=== PATIENT | female | born 1965 | race Two or more races ===

== ENCOUNTER → 2024-06-05 | Outpatient (CLI) | payer MEDICAID, SELFPAY ==
--- NOTE | 2024-06-05 09:37 | XR_ITS ---
Examination: Lumbar spine, 5 views Technique: Lumbar spine AP, lateral, coned lateral lower lumbar spine, bilateral obliques 5 views Exam date and time: June 05, 2024 0951 hours INDICATIONS: Back pain months FINDINGS: Lumbar levoscoliosis 15 degrees Moderate osteopenia Mild to moderate diffuse facet arthropathy No lumbar fracture Diffuse lumbar disc narrowing, moderate L3-L4 No spondylolisthesis IMPRESSION: Diffuse lumbar degenerative disc disease, moderate L3-L4
== END | disposition home or self-care (01) ==
PROVIDERS: PCP Physician Assistant; Referring Provider Physician Assistant; Visit Provider Physician Assistant
DX: M51.369 Other intervertebral disc degeneration, lumbar region without mention of lumbar back pain or lower extremity pain (principal)
CPT/HCPCS: 72110

== ENCOUNTER → 2024-07-18 | Outpatient (CLI) | payer MEDICAID, SELFPAY ==
--- NOTE | 2024-07-18 09:30 | XR_ITS ---
Examination: Breast ultrasound, unilateral, left complete Date and time of exam: July 18, 2019 0511 hours INDICATIONS: Mammogram May 05, 2024 4 mm focus architectural distortion 12:00 position left breast anterior depth Technique: Real-time wick scale ultrasonographic imaging performed left breast including all 4 quadrants as well as nipple retroareolar and axillary region. Findings: No cystic or solid mass IMPRESSION: BI-RADS Category 1: Negative study
--- NOTE | 2024-07-18 10:00 | XR_ITS ---
Examination: Diagnostic digital mammography, unilateral, left Computer aided detection 3-D breast Tomosynthesis, unilateral Date and time of exam: July 18, 2024 1027 hrs. Indications: Mammogram May 05, 2024 4 mm focus architectural distortion 12:00 position left breast Technique: Nonmagnified MLO, CC views of the left breast have been obtained, reconstructed from 3-D Tomosynthesis images. R2 computer aided detection program utilized for evaluation of suspicious masses and/or abnormal calcifications. 3-D Tomosynthesis images obtained. Findings: Scattered areas of fibroglandular density. Small focus of possible architectural distortion remains 12:00 position left breast Impression: BI-RADS category 3: Probably benign findings One additional 6 month left mammogram follow-up is needed to document no definite architectural distortion 12:00 position left breast
== END | disposition home or self-care (01) ==
PROVIDERS: PCP Physician Assistant; Referring Provider Physician Assistant; Visit Provider Physician Assistant
DX: R92.332 Mammographic heterogeneous density, left breast (principal); R92.8 Other abnormal and inconclusive findings on diagnostic imaging of breast
CPT/HCPCS: 76641; 77061; 77065; G0279

== ENCOUNTER 2024-08-02 09:54 | Outpatient (RCR) | payer MEDICAID, SELFPAY ==
--- NOTE | 2024-08-03 13:49 | PT.OIERPT ---
PT OP Initial Eval Patient Information Outpatient Physical Therapy Treatment Date: 08/02/24 Visit Reasons: LOW BACK PAIN Medical Diagnosis: Back Pain Treatment Dx #1: Back Pain Treatment Dx #2: Scoliosis Start of Care: 08/02/24 Smoking Status Smoking Status: Never smoker Initial Assessment Subjective: Pt is a 59 y/o female reports of chronic back pain with intermittent pain down the leg. Pt's most recent xray showed DDD L3-L4 and L5-S1 with 15 deg of scoliosis. No MRI has been done thus far. Pt has limitation with sitting, standing, walking, chores, work duties, and performing recreational activities. Objective: L/S AROM: all motions are WFL except left sidebending and and right rotation Hip PROM: all motions are WFL except IR Hip MMTs: grossly 3+/5 Posture Analysis: right truck sidebend, left shoulder elevation Muscle Length: Hs tightness R>L Special Test: WHITNEY's Assessment: Pt demonstrate back pain with mobility deficits leading to difficulty with ADLs. Pt will attempt physical therapy if pain persist Pt will be refer back to provider for further consultation. Short Term and Mobile Sales Consultant Goals 1) Increase spinal AROM WNL in 6 wks to be able to perform chores 2) Decrease back pain to 2/10 in 6 wks to be able to sit and stand more than 30 mins 3) Increase core strength WFL in 6 wks to be able to perform recreational activities 4) increase hip MMTs grossly to 4-/5 in 6 wks to be able to walk more than 30 mins 5) Indep with HEP Treatment Plan 1) Manual Therapy 2) Therapeutic Activities 3) Therapeutic Exercises 4) Modalities (ice, heat) Frequency and Duration: 2 x wk for 6 wks Certification Dates: 08/02/24 to 10/31/24 Procedure Charges OP PT Eval Mod Complex 30 minutes: Yes
== END 2024-08-04 23:59 | disposition home or self-care (01) ==
LOC: CPTX 09:54
PROVIDERS: PCP Physician Assistant; Referring Provider Physician Assistant; Visit Provider Physician Assistant
DX: M51.362 Other intervertebral disc degeneration, lumbar region with discogenic back pain and lower extremity pain (principal); M41.9 Scoliosis, unspecified; G89.29 Other chronic pain
CPT/HCPCS: 97162

== ENCOUNTER 2024-08-22 08:30 | Outpatient (RCR) | payer MEDICAID, SELFPAY ==
--- NOTE | 2024-08-07 13:16 | PT.ODAYNRPT ---
PT Outpatient Daily Note OP Daily Note Outpatient Physical Therapy Treatment Date: 08/07/24 Visit Reasons: Low back pain Subjective: Pt's back pain is about the same. No change in overall symptoms. Objective: Please see flow chart for list of ther ex performed Assessment: tolerate exercises with minimal pain Plan: Continue with PT Length of Time (minutes) of Treatment: 30 Minutes Procedure Charges Therapeutic Exercise 30 minutes: Yes
--- NOTE | 2024-08-09 09:28 | PT.ODAYNRPT ---
PT Outpatient Daily Note OP Daily Note Outpatient Physical Therapy Treatment Date: 08/09/24 Visit Reasons: Low back pain Subjective: Pt c/o low back LBP and pain on R glute. Objective: Please see flow sheet for ther ex list. Assessment: Poor tolerance with light activities due to pain response. Plan: Continue with POC. Length of Time (minutes) of Treatment: 30 Minutes Procedure Charges Therapeutic Exercise 30 minutes: Yes
--- NOTE | 2024-08-15 10:20 | PT.ODAYNRPT ---
PT Outpatient Daily Note OP Daily Note Outpatient Physical Therapy Treatment Date: 08/15/24 Visit Reasons: Low back pain Subjective: Pt reports low back pain continues to be present. Objective: Please see flow sheet for ther ex list. Assessment: Performed STM to l/s, pt TTP around L5 and sacral region. Pt suffers from vertigo, once getting up from seated pt having episode of dizziness, pt had to sit EOB a few minutes for dizziness to subside. Plan: Continue with POC. Length of Time (minutes) of Treatment: 30 Minutes Procedure Charges Therapeutic Exercise 30 minutes: Yes
--- NOTE | 2024-08-17 10:17 | PT.ODAYNRPT ---
PT Outpatient Daily Note OP Daily Note Outpatient Physical Therapy Treatment Date: 08/17/24 Visit Reasons: Low back pain Subjective: Pt's back feels okay. Minimal changes in pain noted Objective: Please see flow chart for list of ther ex perfromed Assessment: tolerate exercises with minimal pain Plan: Continue with PT Length of Time (minutes) of Treatment: 30 Minutes Procedure Charges Therapeutic Exercise 30 minutes: Yes
--- NOTE | 2024-08-22 11:24 | PT.ODS1RPT ---
PT OP Progress/Discharge Note Date of Service: 08/22/24 Progress Note/DC Note Progress Note/Discharge Note: DC Note Patient Information Visit Reasons: Low back pain Medical Diagnosis: Back Pain Treatment Dx #1: Back Pain Service Discharge Date: 08/22/24 Status Subjective: Pt's back and legs pain is about the same. Due to pain Pt still has limitation with chores, self care, cooking, cleaning, and performing recreational activities. Objective: L/S AROM: all motions are WFL with end range pain Hip PROM: all motions are WFL except IR bilaterally Hip MMTs: grossly 4-/5 Assessment: Pt demonstrate functional L/S mobility, however, continues to have pain leading to difficulty with ADLs. Recommend L/S MRI to help rule in/out nature of pain. Pt was instructed on HEP last session and educated to continue exercises to maintain overall mobility. Pt performed all exercises safely, thank you for your referrals. Plan: D/C home with HEP and follow up with MD DAVIS Recommend L/S MRI Procedure Charges Therapeutic Exercise 30 minutes: Yes
== END 2024-09-01 23:59 | disposition home or self-care (01) ==
LOC: CPTX 08:30
PROVIDERS: PCP Physician Assistant; Referring Provider Physician Assistant; Visit Provider Physician Assistant
DX: M51.362 Other intervertebral disc degeneration, lumbar region with discogenic back pain and lower extremity pain (principal); M41.9 Scoliosis, unspecified; G89.29 Other chronic pain
CPT/HCPCS: 97110

== ENCOUNTER → 2024-09-18 | Outpatient (CLI) | payer MEDICAID, SELFPAY ==
--- NOTE | 2024-09-18 14:32 | XR_ITS ---
Examination: Foot, right, 3 views Technique: AP, oblique, lateral views foot, 3 views Date and time of exam: September 18, 2024 1549 hours Comparison December 30, 2021 INDICATIONS: Right toe pain 5 months. FINDINGS: Prominent osteopenia Moderate osteoarthritis first metatarsophalangeal joint No fracture. No cortical bone destruction Mild osteoarthritis second and third metatarsophalangeal joints Prominent spur formation dorsal surface of the talus and the navicular 6 mm plantar bony calcaneal spur IMPRESSION: Osteoarthritis as above
== END | disposition home or self-care (01) ==
PROVIDERS: PCP Physician Assistant; Referring Provider Physician Assistant; Visit Provider Physician Assistant
DX: M19.071 Primary osteoarthritis, right ankle and foot (principal)
CPT/HCPCS: 73630

== ENCOUNTER → 2024-10-06 | Outpatient (CLI) | payer MEDICAID, SELFPAY ==
--- NOTE | 2024-10-06 14:00 | XR_ITS ---
Examination: MRI lumbar spine without contrast Date and time of exam: October 06, 2024 1449 hours Comparison July 15, 2019 INDICATIONS: Lower back pain 3 years radiating down both legs Technique: Multiple MRI axial and sagittal sections lumbar spine. Sagittal T2-weighted images, TR 3500, TE 118 T1 weighted transverse sections, TR 688 T8.5, T2-weighted sagittal sections T1 weighted sagittal sections TR 621, TE 30 T2 axial sections, TR 4, 190, TE 84. Findings: Adequate alignment lumbar vertebral bodies on the lateral view No lumbar fracture Moderate disc narrowing L3-L4 Diffuse lumbar disc desiccation No spondylolisthesis L5-S1 2 mm right paracentral disc bulge L4-L5 3 mm central lumbar disc bulge L3-L4 2 mm central lumbar disc bulge L2-L3 no disc protrusion L1-L2 no disc protrusion IMPRESSION: L5-S1 L3-L4 2 mm central lumbar disc bulges L4-L5 3 mm central lumbar disc bulge
== END | disposition home or self-care (01) ==
PROVIDERS: PCP Physician Assistant; Referring Provider Physician Assistant; Visit Provider Physician Assistant
DX: M51.360 Other intervertebral disc degeneration, lumbar region with discogenic back pain only (principal); M51.370 Other intervertebral disc degeneration, lumbosacral region with discogenic back pain only
CPT/HCPCS: 72148

== ENCOUNTER 2024-12-21 15:43 | Observation (INO) | payer MEDICAID, SELFPAY ==
[2024-12-21 16:12] VITALS: BP 159/83; PULSE 64; RESP 18; TEMP 36.6; O2SAT 94; BMI 28.1
--- NOTE | 2024-12-21 16:49 | XR_ITS ---
Examination: CT brain head without contrast. 2-D sagittal coronal reconstructions Date and time of exam:December 21, 2024 at 1653 hours INDICATIONS: Stroke alert, onset slurred speech focal neurologic deficit body weakness today CTDI: vol (mGy):45.5 DLP: (mGycm):921 Technique: Multiple CT axial sections of the brain have been obtained, 5 mm slice thickness. Contrast has not been administered. 2-D sagittal, coronal reconstructions have been obtained Low dose protocols were performed. One or more of the following dose reduction techniques were used; automated exposure control, adjustment of the mA and/or KV according to patient size, use of iterative reconstruction technique. Findings: No significant ventricular enlargement. Intra-axial or extra-axial hemorrhage density is not seen. No mass effect or midline shift Basal cisterns are not remarkable. Fourth ventricle is midline. Cranial vault intact. Impression: Negative for acute hemorrhage, mass effect or midline shift
--- NOTE | 2024-12-21 16:49 | EKG_ITS ---
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
--- NOTE | 2024-12-21 16:49 | XR_ITS ---
Examination: CTA carotids with intravenous contrast CTA brain, head with intravenous contrast. 2-D sagittal, coronal reconstructions. 3-D reconstructions. Exam date and time: December 21, 2024 1701 hours INDICATIONS: Stroke alert, onset slurred speech diffuse body weakness beginning 8 hours ago CTDI: vol (mGy) 39.6 DLP: (mGycm) 516 Technique: Multiple CTA axial brain, head carotid images post intravenous contrast injection 75 cc, Isovue-[id number]. 2-D sagittal, coronal reconstructions. 3-D reconstructions, 3-D post processing including vascular maximum intensity projection images. Low dose protocols were performed. One or more of the following dose reduction techniques were used; automated exposure control, adjustment of the mA and/or KV according to patient size, use of iterative reconstruction technique. Findings: No significant common carotid carotid bifurcation or internal carotid artery stenoses Dominant right vertebral artery with no critical vertebral artery stenoses Intracranial vertebral arteries artery posterior cerebral branches fill with no large vessel occlusions Juxtasellar supracondylar portions internal carotid arteries fill M1 segments middle cerebral arteries middle cerebral artery trifurcation vessels and anterior cerebral arteries demonstrate no large vessel occlusions IMPRESSION: No significant neck arterial stenoses No cerebral large vessel arterial occlusions, thrombus,. Brain MRI MRA without contrast follow-up would best assess for demyelinating disease, acute ischemic change, as clinically warranted
--- NOTE | 2024-12-21 16:49 | PD.EDRME ---
Rapid Medical Screening Exam RME Arrival date/time: 12/21/24 15:43 Chief Complaint: Nausea/Vomiting/Diarrhea Time Seen by Provider: 12/21/24 16:18 Vital signs: Vital Signs Temperature 97.9 F 12/21/24 16:12 Pulse Rate 64 12/21/24 16:12 Respiratory Rate 18 12/21/24 16:12 Blood Pressure 159/83 H 12/21/24 16:12 Pulse Oximetry (%) 94 L 12/21/24 16:12 Oxygen Delivery Method Room Air 12/21/24 16:12 Vital signs reviewed by provider: Yes RME Narrative: 59-year-old female with past medical history of hyperlipidemia is brought in by her daughter for evaluation of worsening headache x 8 hours. Patient's daughter reports new onset high blood pressure at home. She endorses slurred speech prior to arrival to the ED. Patient endorses diffuse weakness.
--- NOTE | 2024-12-21 17:00 | PC.NURSE ---
Pt taken to ct scan from triage. pt woke with s/s of gen body weakness, dizziness, frontal headache with nausea and vomiting that started at 0900. pt stated that she went to bed feeling fine at about 2230 last night. daughter also stated that when she spoke to her mom on phone it sounded like her voice was slurry which was about 11 am. pt has hx of pre dm but does not take meds, headaches but has not had one for a long time, and left knee surgery.
[2024-12-21 17:10] VITALS: BP 171/136; PULSE 67; RESP 16; O2SAT 97
--- NOTE | 2024-12-21 17:10 | PC.NURSE ---
Md Carmelita Villa from [facility] neuro on monitor for consult in ct.
[2024-12-21 17:17] LABS: Basophils % (Auto) 1 % (0-2.5); Eosinophils # (Auto) 0.2 Thou/mm3 (0.0-0.5); Eosinophils % (Auto) 2 % (0-10); Hemoglobin 13.4 g/dL (12.0-16.0); Immature Granulocytes % (Auto) 0 % (0-0); Immature Granulocytes Auto 0.03 Thou/mm3 (0.00-0.00); Lymphocytes # (Auto) 3.3 Thou/mm3 (1.0-4.8); Lymphocytes % (Auto) 41 % (10-50); Mean Corpuscular HGB Conc 33.5 g/dl (31.0-37.0); Mean Corpuscular Hemoglobin 26.5 pg (25.0-35.0); Mean Corpuscular Volume 79 fL (80-100); Monocytes # (Auto) 0.7 Thou/mm3 (0.0-0.8); Monocytes % (Auto) 9 % (0-12); Neutrophils # (Auto) 3.6 Thou/mm3 (1.8-7.7); Neutrophils % (Auto) 46 % (37-80); Nucleated Red Blood Cell % 0 /100 WBC (0); Platelet Count 233 Thou/mm3 (140-440); RDW Standard Deviation 37.8 fL (36.4-46.3); Red Blood Count 5.06 Miln/mm3 (4.00-5.20); White Blood Count 7.9 Thou/mm3 (3.6-11.0)
--- NOTE | 2024-12-21 17:21 | PC.NURSE ---
per md tele neuro no TNK or TPA meds at this time. pt will be evaluated with ed md for further care.
--- NOTE | 2024-12-21 17:36 | PC.NURSE ---
pt back from ct scan report given to primary nurse callie rosario
--- NOTE | 2024-12-21 17:36 | PD.TNEURO ---
Tele Neuro Consultation Consultation Date 12/21/24 Most Recent Vital Signs Last Vital Signs Temp 97.9 F 12/21/24 16:12 Pulse 64 12/21/24 16:12 Resp 18 12/21/24 16:12 BP 159/83 H 12/21/24 16:12 Pulse Ox 94 L 12/21/24 16:12 O2 Del Method Room Air 12/21/24 16:12 Consultation Narrative [facility] Patient Name:???Efra Stringer Date of :???1965 Identification Number:??? Date of Service:???12/21/2024 16:50:59 Diagnosis:?R42 - Dizziness/ Vertigo/ Giddiness Impression: ?59 yo RH F with h/o HLD, prediabetes, presenting with dizziness (she describes as generalized weakness), frontal headache which is unusual for her, fatigue, and transient slurred speech. Symptoms are fairly nonspecific and I do not see any focal findings including nystagmus, dysmetria, ataxia on exam, but she does have some vascular risk factors. Recommend toxic/metabolic workup and watch BP and HR, but if no other clear cause on initial workup, consider stroke rule out. Not a thrombolytic candidate due to being out of the window. Advanced imaging is pending. Case discussed with ED Dr. José by phone. Our recommendations are outlined below. Recommendations: ? Stroke/Telemetry Floor ? Neuro Checks (Q2) ? Bedside Swallow Eval ? DVT Prophylaxis ? IV Fluids, Normal Saline ? Head of Bed 30 Degrees ? Euglycemia and Avoid Hyperthermia (PRN Acetaminophen) ? Antihypertensives PRN if Blood pressure is greater than 220/120 or there is a concern for End organ damage/contraindications for permissive HTN. If blood pressure is greater than 220/120 give labetalol PO or IV or Vasotec IV with a goal of 15% reduction in BP during the first 24 hours. ?Okay for ASA 325 x 1 for today, no need for continuation unless workup does reveal a clear indication such as stroke Sign Out: ? Discussed with Emergency Department Provider Advanced Imaging:Advanced imaging has been ordered. Results pending. Metrics: Last Known Well: 12/20/2024 22:30:00 Dispatch Time: 12/21/2024 16:50:59 Arrival Time: 12/21/2024 15:43:00 Initial Response Time: 12/21/2024 17:03:47Symptoms: dizziness, headache, fatigue, slurred speech. Initial patient interaction: 12/21/2024 17:08:03 NIHSS Assessment Completed: 12/21/2024 17:14:25Patient is not a candidate for Thrombolytic. Thrombolytic Medical Decision: 12/21/2024 17:14:28Patient was not deemed candidate for Thrombolytic because of following reasons: LKW outside 4.[address] Head: I personally reviewed all the CT images that were available to me and it showed: No obvious new stroke or bleed Primary Provider Notified of Diagnostic Impression and Management Plan on: 12/21/2024 17:28:35 History of Present Illness:Patient is a 59 year old Female. Patient was brought by private transportation with symptoms of dizziness, headache, fatigue, slurred speech. 59 yo RH F with h/o HLD, prediabetes, presenting with dizziness, headache, fatigue, slurred speech. LKN 2230 last night when she went to bed. She woke up at 0900 which is unusually late for her. She was nauseated, dizzy, and had a headache and fatigue. She was really tired, just wanted to lay down. The dizziness feels like weakness throughout. She feels like she can't walk right due to the generalized weakness, although notes that she always walks a little crooked due to arthritis, which is not different today. There is no particular imbalance or veering to one side. The headache is a frontal headache. She did have headache frequently years ago, but they went away, so this is new and unusual for her. At 1100 her daughter called her and noted slurred speech. Currently she feels she's talking normally. I do not see any nystagmus or dysmetria or ataxia on exam. ? Past Medical History: ?Hyperlipidemia Other PMH:? prediabetes Medications: No Anticoagulant use? No Antiplatelet use Reviewed EMR for current medications Allergies:? Reviewed Social History: Smoking: No Family History: There is no family history of premature cerebrovascular disease pertinent to this consultation ROS : 14 Points Review of Systems was performed and was negative except mentioned in HPI. Past Surgical History: There Is No Surgical History Contributory To Today?s Visit ? Examination: BP(159/83),?Pulse(64), 1A: Level of Consciousness - Alert; keenly responsive?+ 0 1B: Ask Month and Age - 1 Question Right?+ 1 1C: Blink Eyes & Squeeze Hands - Performs Both Tasks?+ 0 2: Test Horizontal Extraocular Movements - Normal?+ 0 3: Test Visual Messer - No Visual Loss?+ 0 4: Test Facial Palsy (Use Grimace if Obtunded) - Normal symmetry?+ 0 5A: Test Left Arm Motor Drift - No Drift for 10 Seconds?+ 0 5B: Test Right Arm Motor Drift - No Drift for 10 Seconds?+ 0 6A: Test Left Leg Motor Drift - No Drift for 5 Seconds?+ 0 6B: Test Right Leg Motor Drift - No Drift for 5 Seconds?+ 0 7: Test Limb Ataxia (FNF/Heel-Stallings) - No Ataxia?+ 0 8: Test Sensation - Normal; No sensory loss?+ 0 9: Test Language/Aphasia - Normal; No aphasia?+ 0 10: Test Dysarthria - Normal?+ 0 11: Test Extinction/Inattention - No abnormality?+ 0 NIHSS Score:?1 NIHSS Free Text : ?No nystagmus ?Able to stand and walk without obvious ataxia Pre-Morbid Modified [place] Scale:0 Points = No symptoms at all Spoke with :?Dr. José This consult was conducted in real time using interactive audio and video technology. Patient was informed of the technology being used for this visit and agreed to proceed. Patient located in hospital and provider located at home/office setting. Patient is being evaluated for possible acute neurologic impairment and high probability of imminent or life-threatening deterioration. I spent total of 35 minutes providing care to this patient, including time for face to face visit via telemedicine, review of medical records, imaging studies and discussion of findings with providers, the patient and/or family. Dr Carmelita Villa [facility] For Inpatient follow-up with [facility] physician please call [facility] at . As we are not an outpatient service for any post hospital discharge needs please contact the hospital for assistance. If you have any questions for the [facility] physicians or need to reconsult for clinical or diagnostic changes please contact us via [facility] at . ?
[2024-12-21 17:47] VITALS: BP 173/87; PULSE 85; RESP 18; O2SAT 96
--- NOTE | 2024-12-21 17:54 | EDNOTE_ITS ---
ED General RME/HPI General Chief complaint: Nausea/Vomiting/Diarrhea Stated complaint: Vomiting today, HTN, Dizzy, WILLIS Time Seen by Provider: 12/21/24 16:18 Arrival date/time: 12/21/24 15:43 RME / HPI RME / HPI narrative: 59-year-old female with past medical history of hyperlipidemia is brought in by her daughter for evaluation of worsening headache x 8 hours. Patient's daughter reports new onset high blood pressure at home. She endorses slurred speech prior to arrival to the ED. Patient endorses diffuse weakness. Patient last well-known time was 2300 last night. Denies any other complaints. Patient is not taking any blood thinner. Related Data Home Medications ?Medication ?Instructions ?Recorded ?Confirmed ibuprofen 800 mg tablet 800 mg PO Q8HR PRN PAIN #0 t abs 07/18/15 08/04/18 amitriptyline 25 mg tablet 25 mg PO QDAY 08/03/1807/07 ergocalciferol (vitamin D2) 1,250 50,000 unit PO QWEEK 08/03/18 08/04/18 mcg (50,000 unit) capsule (Vitamin D2) lovastatin 20 mg tablet 20 mg PO QDAY 08/03/1808/04 Allergies Allergy/AdvReac Type Severity Reaction Status Date / Time codeine AdvReac Intermediate NAUSEA AND Verified 12/21/24 15:47 VOMITING hydrocodone AdvReac Unknown Nausea/Vomi Verified 12/21/24 15:47 tiing Review of Systems Review of Systems Narrative Review of Systems: Review of system reviewed and within normal limits except mentioned in HPI ED Exam Narrative Physical exam: VITAL SIGNS: Reviewed. GENERAL APPEARANCE: Alert and interactive, follows commands, no acute distress, HEAD AND FACE: Non-traumatic. ENT: PERRL, pink conjunctivitis, eyelid no trauma, Mucous membrane moist. NECK: Supple, nontender, no nuchal rigidity. CHEST: No tenderness, no crepitus, no paradoxical movement, no retractions. LUNGS: Clear, well ventilated, symmetric, no rales, no wheezing, no ronchi, no stridor, good breath sounds bilaterally. HEART: Regular rate, regular rhythm, no murmur, no gallops. ABDOMEN: Soft, positive bowel sounds, nondistended, no guarding, nontender, no rebound, no masses, RECTAL: Deferred. GENITAL: Deferred. NEUROLOGICAL: Gross motor function intact sensory function intact, Appropriate for age. MUSCULOSKELETAL: low back nontender, full range of motion. EXTREMITIES: Nontender, full range of motion. SKIN: Color pink, dry, no rash, no lacerations, no abrasions, no contusions. LYMPHATICS: Deferred. Course Quality Measures none Orders Category Date Time Status Bedside Blood Glucose NOW Care 12/21/24 16:49 Active COVID-19 Screening Questionnaire NOW Care 12/21/24 21:11 Active Vending Machine Refiller NOW Care 12/21/24 16:49 Active Continuous Pulse Oximetry NOW Care 12/21/24 16:49 Completed Decision to Admit X1 Care 12/21/24 21:11 Active EKG (ED ONLY) *Do not use* NOW Care 12/21/24 16:49 Completed In and Out Catheter NEEDED Care 12/21/24 16:49 Active Insert IV NOW Care 12/21/24 16:49 Active NIH Stroke Scale now Care 12/21/24 16:49 Active NPO NOW Care 12/21/24 16:49 Active Nurse Swallow Screen x1 Care 12/21/24 16:49 Active Consult to Neurology / Tele-Neurology Routine Cons 12/21/24 16:[address] angio stroke protocol Stat Exams 12/21/24 16:[address] stroke protocol Stat Exams 12/21/24 16:49 Completed EKG (ED Only) Stat Exams 12/21/24 16:49 Draft Beta HCG,Quantitative Stat Lab 12/21/24 17:41 Completed CBC Stat Lab 12/21/24 17:03 Completed Comprehensive Metabolic Panel Stat Lab 12/21/24 17:41 Completed Drug Screen,Urine Stat Lab 12/21/24 18:22 Completed HCG Titer if Positive Stat Lab 12/21/24 17:41 Completed Magnesium Stat Lab 12/21/24 17:41 Completed Partial Thromboplastin Time Stat Lab 12/21/24 17:41 Completed Prothrombin Time with INR Stat Lab 12/21/24 17:41 Completed Troponin I Stat Lab 12/21/24 17:41 Completed Urinalysis Stat Lab 12/21/24 18:22 Completed Urine Culture Stat Lab 12/21/24 18:22 Received Aspirin Med 12/21/24 18:15 Discontinued 325 mg PO X1 ONE Ondansetron Inj [Zofran Inj] Med 12/21/24 16:49 Active 4 mg IVP Q4HR PRN Oxygen Delivery NOW RT 12/21/24 16:49 Active Vital Signs Vital signs: Vital Signs Temperature 97.9 F 12/21/24 16:12 Pulse Rate 64 12/21/24 16:12 Respiratory Rate 18 12/21/24 16:12 Blood Pressure 159/83 H 12/21/24 16:12 Pulse Oximetry (%) 94 L 12/21/24 16:12 Oxygen Delivery Method Room Air 12/21/24 16:12 Discharge Plan Plan Patient Disposition: Admit Acute Care w/in Hospital Prescriptions/Referrals Prescriptions/Med Rec: No Action ibuprofen 800 MG tablet 800 mg PO Q8HR PRN (Reason: PAIN) Qty: 0 amitriptyline 25 mg Tablet 25 mg PO QDAY ergocalciferol (vitamin D2) [Vitamin D2] 50,000 unit Capsule 50,000 unit PO QWEEK lovastatin 20 mg Tablet 20 mg PO QDAY Referrals: No Primary/Family,Physician [Primary Care Provider] - In 1 week Problem List Clinical Impression: Stroke-like symptom Patient/Caregiver Discharge Instructions Print Language: Romansh Stand Alone Forms: [employer] Award Info., Patient Portal Info Letter MDM Narrative MDM hospital course: 59-year-old female with past medical history of hyperlipidemia is brought in by her daughter for evaluation of worsening headache x 8 hours. Patient's daughter reports new onset high blood pressure at home. She endorses slurred speech prior to arrival to the ED. Patient endorses diffuse weakness. Patient last well-known time was 2300 last night. Denies any other complaints. Patient is not taking any blood thinner. Stroke alert was initiated right away. I spoke with teleneurologist, who recommends full dose of aspirin x 1 patient is not a candidate for TNKase. EKG showed normal sinus rhythm, ventricular rate of 66 bpm, no ST segment elevation or depression noted. CT scan of the head came back unremarkable. CTA head and neck also came back unremarkable. Patient's workup also came back unremarkable. Spoke with hospitalist who admitted the patient. Medication Administration(s) Medication Administration History Ondansetron HCl (Ondansetron Inj 2 Mg/Ml Inj 2 Ml) 4 mg IVP Q4HR PRN PRN Reason: NAUSEA OR VOMITING Stop: 01/20/25 16:48 Discontinued Medications Aspirin (Aspirin 325 Mg Tablet) 325 mg PO X1 ONE Stop: 12/21/24 18:16 Last Admin: 12/21/24 18:27 Dose: 325 mg Documented By: EF Diagnosis Differential diagnosis: Strokelike symptoms, headache, dizziness, slurring of speech Most likely dx, and/or detailed dx discussion: Strokelike symptoms
[2024-12-21 18:06] LABS: Partial Thromboplastin Time 22.8 Seconds (22.0-36.0); Prothrombin Time 10.6 Seconds (9.0-12.2)
[2024-12-21 18:19] LABS: HCG Titer if Positive Positive
[2024-12-21 18:25] VITALS: BP 109/68; PULSE 65; RESP 16; TEMP 36.6; O2SAT 95
[2024-12-21] MEDS: Aspirin 325 MG TABLET PO (18:27)
[2024-12-21 18:33] LABS: Alanine Aminotransferase 22 U/L (10-49); Albumin, Serum 4.2 gm/dL (3.5-5.0); Albumin/Globulin Ratio 1.7 (1.2-2.2); Alkaline Phosphatase 82 U/L (46-116); Anion Gap 8 (7-16); Aspartate Amino Transferase 23 U/L (0-34); BUN/Creatinine Ratio 16 Ratio (12-20); Beta HCG,Quantitative 4 mIU/mL (<5.0); Bilirubin,Total 0.8 mg/dL (0.3-1.2); Blood Urea Nitrogen 11 mg/dL (9-23); Calcium 8.8 mg/dL (8.3-10.6); Calcium (Corrected) 8.8 mg/dL (8.5-10.1); Carbon Dioxide 28.1 mMol/L (20.0-31.0); Chloride 102 mMol/L (98-107); Creatinine (Component) 0.7 mg/dL (0.6-1.3); Estimated Creatinine Clearance 95.1 mL/min (>60); Globulin 2.5 gm/dL (2.3-3.5); Glucose 98 mg/dL (74-106); Magnesium 1.9 mg/dL (1.6-2.6); Osmolality,Calculated 275 (275-295); Potassium 4.6 mMol/L (3.4-5.1); Sodium 138 mMol/L (136-145); Total Protein 6.7 gm/dL (5.7-8.2); Troponin I < 0.002 ng/mL (0.0-0.045); eGFR > 60 See Note
[2024-12-21 18:37] LABS: Collection Type, Urine Clean Catch; Squamous Epithelial Cell,Urine 0 /hpf (0-5)
[2024-12-21 18:47] LABS: Bilirubin,Urine Negative (Negative); Blood,Urine Negative (Negative); Clarity,Urine Clear (Clear/Hazy); Color,Urine Colorless (Lt Yel-Yel); Glucose, Urine Negative (Negative); Ketones,Urine Negative (Negative); Leukocyte Esterase,Urine Negative (Negative); Nitrite,Urine Negative (Negative); Protein,Urine Negative (Neg - Trace); RBC,Urine < 1 /hpf (0-3); Specific Gravity,Urine 1.016 (1.001-1.035); Urobilinogen,Urine Negative mg/dL (0.0-1.0); WBC,Urine < 1 /hpf (0-5)
[2024-12-21 18:54] LABS: Amphetamine/Methamp Scrn,U Negative (Negative); Barbiturate Screen,Urine Negative (Negative); Benzodiazepines Screen,Urine Negative (Negative); Benzoylecgonine Screen, Ur Negative (Negative); Fentanyl Screen,Urine Negative (Negative); Opiate Screen,Urine Negative (Negative); THC Screen,Urine Negative (Negative)
[2024-12-21 20:00] VITALS: BP 163/94; PULSE 68; RESP 16; TEMP 36.6; O2SAT 95
--- NOTE | 2024-12-21 23:05 | ESHP_ITS ---
<Statement entered by Melony Dunne MD - 12/22/24 07:10> I Melony Dunne MD reviewed the note and agree with the resident's assessment & plan with exceptions as below. I have personally reviewed labs, imaging, home meds/prior records, examined the patient, formulated and discussed management plan with the IM team. Will obtain quantitative beta-hCG. Complete stroke workup as below including MRI brain, continue with aspirin high intensity statin Documentation for date of: 12/21/24 HPI History of Present Illness Chief complaint: Headache History of present illness: 59-year-old female with past medical history of hyperlipidemia, arthritis, prediabetes who presented to the ED due to headache. Patient was at home and noticed that her blood pressure was elevated systolic of more than 180 at home family also noticed that the patient started developing some slurred speech and increased work of breathing. She also endorses some nausea and vomiting around 9 AM this morning. She rates her headache as a 7 out of 10 with no all the symptoms. She also denies any prior history of migraine headaches. Due to the symptoms stroke alert was called in the ED teleneurology was consulted however at the time of their evaluation patient's presenting symptoms had already resolved. At this time patient denies headache, blurry vision, shortness of breath, palpitations, chest pain, nausea, vomiting, diarrhea, abdominal pain, sick contacts, recent travel. Patient will be admitted for stroke workup. ED course: ED vitals: BP 159/83, HR 64, saturating 94% on room air, ED labs: CBC unremarkable, CHEM panel unremarkable, UA negative for acute infection, hCG was positive quantitative hCG less than 4, head CT negative, head/neck CTA negative PMHx: As above SX Hx: Left knee, right shoulder surgeries, cholecystectomy, lower extremity varicose veins repair Social Hx: Denies cigarette use, denies alcohol use, denies illicit substances including THC FH X: Unknown Review of Systems Review of Systems Systems Reviewed: All systems reviewed, normal except as documented Narrative Review of Systems: All 12 systems reviewed and found negative unless otherwise stated in HPI. Exam Vital Signs Temp Pulse Resp BP Pulse Ox O2 Del Method 97.8 F 68 16 163/94 H 95 Room Air 12/21/24 20:00 12/21/24 20:12/21/24 20:12/21/24 20:00 12/21/24 20:00 12/21/24 20:00 Narrative Exam Physical Exam GENERAL: NAD, AAOx3 HEENT: Moist mucosa. Eyes open, symmetrical, & clear CARDIO: Heart RRR, no obvious murmurs PULM: No noted coughing/dyspnea CTA B/L, no R/W/R GI: Abdomen soft, nondistended, no pain on palpation. BSx4 SKIN/MSK/EXT: No wounds/rashes/edema/amputations, no pain on palpation. Pedal pulses present B/L NEURO: AAOx3, no focal neuro deficits, able to move all 4 extremities Results: Labs 12/21/24 17:03 12/21/24 17:41 Labs: Short CBC 12/21/24 Range/Units 17:03 WBC 7.9 (3.6-11.0) Thou/mm3 Hgb 13.4 (12.0-16.0) g/dL Hct 40.0 (36.0-46.0) % Plt Count 233 (140-440) Thou/mm3 BMP 12/21/24 17:41 Sodium 138 Potassium 4.6 Chloride 102 Carbon Dioxide 28.1 BUN 11 Creatinine 0.7 Glucose 98 Calcium 8.8 Cardiac Enzymes 12/21/24 Range/Units 17:41 Troponin I < 0.002 (0.0-0.045) ng/mL Liver Function 12/21/24 Range/Units 17:41 Total Bilirubin 0.8 (0.3-1.2) mg/dL AST 23 (0-34) U/L ALT 22 (10-49) U/L Alkaline Phosphatase 82 (46-116) U/L Albumin 4.2 (3.5-5.0) gm/dL Urine 12/21/24 Range/Units 18:22 Urine Color Colorless A (Lt Yel-Yel) Urine Clarity Clear (Clear/Hazy) Urine pH 7.0 (5.0-7.0) Ur Specific [place] 1.016 (1.001-1.035) Urine Protein Negative (Neg - Trace) Urine Glucose (UA) Negative (Negative) Quality Measures Quality Measures none Medications Home Medications and Allergies Home Medications ?Medication ?Instructions ?Recorded ?Confirmed ?Type ibuprofen 800 mg tablet 800 mg PO Q8HR PRN PAIN #0 t abs 07/18/15 08/04/18 History amitriptyline 25 mg tablet 25 mg PO QDAY 08/03/18/07/23 History ergocalciferol (vitamin D2) 1,250 50,000 unit PO QWEEK 08/03/18 08/04/18 History mcg (50,000 unit) capsule (Vitamin D2) lovastatin 20 mg tablet 20 mg PO QDAY 08/03/1808/04 History Allergies Allergy/AdvReac Type Severity Reaction Status Date / Time codeine AdvReac Intermediate NAUSEA AND Verified 12/21/24 15:47 VOMITING hydrocodone AdvReac Unknown Nausea/Vomi Verified 12/21/24 15:47 tiing Visit Medications Acetaminophen (Acetaminophen 325 Mg Tablet) 1,000 mg PO Q6H PRN PRN Reason: PAIN SCALE 1-3 (mild Stop: 01/20/25 22:45 Sodium Chloride (Ns) 1,000 mls @ 75 mls/hr IV .[id number] KENIA Stop: 01/20/25 22:44 Labetalol HCl (Labetalol Inj 5 Mg/Ml Vial 20 Ml) 10 mg IVP Q6H PRN PRN Reason: SBP>220 Stop: 01/20/25 22:52 Ondansetron HCl (Ondansetron Inj 2 Mg/Ml Inj 2 Ml) 4 mg IVP Q4HR PRN PRN Reason: NAUSEA OR VOMITING Stop: 01/20/25 16:48 Ondansetron HCl (Ondansetron Inj 2 Mg/Ml Inj 2 Ml) 4 mg IVP Q6H PRN; Protocol PRN Reason: NAUSEA OR VOMITING Stop: 01/20/25 22:45 Discontinued Medications Aspirin (Aspirin 325 Mg Tablet) 325 mg PO X1 ONE Stop: 12/21/24 18:16 Last Admin: 12/21/24 18:27 Dose: 325 mg Assessment & Plan Plan 59-year-old female with past medical history of arthritis, hyperlipidemia, prediabetes who presents to the ED due to headache. Patient will be admitted for stroke workup. #CVA workup Patient presented with headache and slurred speech, however on teleneurology evaluation symptoms had already resolved Patient denies any aura symptoms or prior history of migraine headaches CT head negative CTA head/neck negative ? MRI as per stroke protocol ? Echo with bubble study ? Aspirin 324 x 1 as per teleneuro recommendations ? In-house neurology consulted, appreciate recs ? High intensity statin ? IV fluids ? Aspiration precautions ? Speech therapy ? Physical therapy #Prediabetes #Hyperlipidemia ? Follow-up A1c ? Consider starting sliding scale insulin Health Maintenance: Disposition: Telemetry, stroke workup Fluids: NS Feeding: N.p.o. till speech eval Thrombo prophylaxis: SCDs Gastric Ulcer prophylaxis: None CODE STATUS: Full code Case discussed with my attending Dr. Uzair Vicente MD PGY-1 Disclaimer: Despite multiple revisions, due to the dictation software being used, the document bellow may not be free of grammatical errors including phonetic/typographic errors. However, this does not deter from our commitment to providing health care in the patient's best interest in mind.
[2024-12-21 23:14] VITALS: BP 151/76; PULSE 65; RESP 18; O2SAT 96
[2024-12-21] MEDS: SODIUM CHLORIDE 0.9% 1000 ML 1,000 ML 75 ML IV (23:52)
[2024-12-22] VITALS (8 sets, daily range): BP systolic 117–153; BP diastolic 65–93; PULSE 56–74; RESP 16–21; TEMP 36.5–36.8; O2SAT 94–96
--- NOTE | 2024-12-22 | XR_ITS ---
Examinations: MRI Brain without intravenous contrast. MRA brain without intravenous contrast. MRA carotids without intravenous contrast 3-D vascular reconstructions Date and time of exam: December 22, 2024 at 0748 hours INDICATIONS: Stroke alert 08/23/2024, onset headache slurred speech nausea vomiting Technique: Multiple axial and sagittal images of the brain have been obtained MRA brain carotid images without contrast obtained, including 3-D postprocessing, vascular maximum intensity projection images Findings: Sell[place] is not enlarged. The optic chiasm and infundibular stalk are not remarkable. Prepontine and interpeduncular cisterns are not enlarged. No localized enlargement of the medulla or mell. Fourth ventricle and cerebellar tonsils normal in position. Subacute hemorrhage is not seen. Fourth ventricle is midline. Mass in the cerebellopontine angle region is not evident. 7th and 8th nerve complexes exhibits symmetry. Globes are symmetrical with no retro-orbital mass. Increased white matter signal evident, multiple punctate foci increased signal in the white matter Diffusion-weighted images demonstrate no focus of restricted diffusion Mass-effect upon the ventricular system is not identified. MRA carotid images no significant carotid stenoses. MRA brain images no large vessel occlusions Impression: Negative for acute hemorrhage mass effect or midline shift No acute infarct Multiple punctate foci increased signal in the white matter, demyelinating disease
[2024-12-22 04:47] LABS: Basophils % (Auto) 0 % (0-2.5); Eosinophils # (Auto) 0.2 Thou/mm3 (0.0-0.5); Eosinophils % (Auto) 3 % (0-10); Hematocrit 39.4 % (36.0-46.0); Immature Granulocytes % (Auto) 0 % (0-0); Immature Granulocytes Auto 0.02 Thou/mm3 (0.00-0.00); Lymphocytes # (Auto) 2.5 Thou/mm3 (1.0-4.8); Lymphocytes % (Auto) 39 % (10-50); Mean Corpuscular Hemoglobin 26.4 pg (25.0-35.0); Mean Corpuscular Volume 80 fL (80-100); Monocytes # (Auto) 0.5 Thou/mm3 (0.0-0.8); Monocytes % (Auto) 9 % (0-12); Neutrophils # (Auto) 3.1 Thou/mm3 (1.8-7.7); Neutrophils % (Auto) 49 % (37-80); Nucleated Red Blood Cell % 0 /100 WBC (0); Platelet Count 220 Thou/mm3 (140-440); RDW Standard Deviation 38.1 fL (36.4-46.3); Red Blood Count 4.93 Miln/mm3 (4.00-5.20); White Blood Count 6.3 Thou/mm3 (3.6-11.0)
[2024-12-22 05:14] LABS: Alanine Aminotransferase 27 U/L (10-49); Albumin/Globulin Ratio 1.7 (1.2-2.2); Alkaline Phosphatase 79 U/L (46-116); Anion Gap 8 (7-16); Aspartate Amino Transferase 31 U/L (0-34); BUN/Creatinine Ratio 16 Ratio (12-20); Bilirubin,Total 0.8 mg/dL (0.3-1.2); Blood Urea Nitrogen 11 mg/dL (9-23); Calcium 8.8 mg/dL (8.3-10.6); Calcium (Corrected) 8.8 mg/dL (8.5-10.1); Carbon Dioxide 28.2 mMol/L (20.0-31.0); Cardiac Risk Estimate 2.4 RATIO (3.7-5.6); Chloride 107 mMol/L (98-107); Cholesterol 155 mg/dL (132-200); Creatinine (Component) 0.7 mg/dL (0.6-1.3); Estimated Creatinine Clearance 95.1 mL/min (>60); Globulin 2.3 gm/dL (2.3-3.5); Glucose 97 mg/dL (74-106); HDL Cholesterol 64 mg/dL (40-60); LDL Cholesterol,Calculated 72 mg/dL (0-130); Osmolality,Calculated 284 (275-295); Phosphorous 4.2 mg/dL (2.4-5.1); Potassium 3.8 mMol/L (3.4-5.1); Sodium 143 mMol/L (136-145); Thyroid Stimulating Hormone 3.68 uIU/mL (0.55-4.78); Total Protein 6.3 gm/dL (5.7-8.2); Triglycerides 96 mg/dL (30-150); eGFR > 60 See Note
[2024-12-22 05:22] LABS: Glucose Estimated Average 120 mg/dL (80-131); Hemoglobin A1C 5.8 % Hgb (4.8-6.0)
--- NOTE | 2024-12-22 08:15 | PC.NURSE ---
@0322 PT AMBULATED TO RESTROOM. PT DENIES SOB AND WEAKNESS. PT HAD A STEADY GAIT AND NO TROUBLE WALKING
--- NOTE | 2024-12-22 12:52 | PC.CC ---
Patient is a 59 year old female who presents to the Emergency Department for headache/slurred speech. [employer] and [employer] Student Emmy gibson introduced self, role reason for visit. Limits of confidentiality were discussed. Patient appears to be alert and oriented to self, location and situation. Patient was pleasant and engaged in initial assessment. Patient confirmed information on demographics. Patient is currently unemployed and lives with her son Shawn. Patient named her daughter Shauna Mendes ([phone]) as her surrogate decision maker. The patients primary care provider is Selene Orantes and pharmacy [facility] preference is [facility]. Patient is able to ambulate and complete ADLs independently. Patient denies any DME use. Upon discharge patient plans to return home. business services coordinator will follow up with any discharge needs.
[2024-12-22] MEDS: SODIUM CHLORIDE 0.9% 1000 ML 1,000 ML 75 ML IV (13:19)
--- NOTE | 2024-12-22 13:48 | PCS.ST ---
Pt interviewed. MRI negative. Baseline. Tolerating diet. No formal ST services are warranted at this time.
--- NOTE | 2024-12-22 13:50 | PC.NURSE ---
Pt does not have home meds with her. Pt will have family bring list.
--- NOTE | 2024-12-22 14:41 | PC.PT ---
Patient is safe to ambulate to the bathroom and in her room with the FWW and 1 staff assist to guide the FWW since patient is unable to use her R UE. RN made aware.
--- NOTE | 2024-12-22 16:49 | PC.PT ---
PT eval only. Patient was xI with bed mobility, transfers, and ambulation. Patient is safe to ambulate to the bathroom and in the halls with no AD but 1 person either family or staff with her for safety. RN made aware.
--- NOTE | 2024-12-22 19:07 | ESDS_ITS ---
<Statement entered by Jennifer Suarez MD - 12/26/24 09:00> I reviewed above note and agree with findings and plans. I have also personally examined the patient with medicine team and went over assessment and plan with medical team including environmental health and safety intern and resident physician. Planned Discharge Date 12/22/24 DS: Providers Provider Date of admission: 12/21/24 22:45 Primary care physician: Physician No Primary/Family Admitting Provider: Melony Dunne MD Attending Provider on Admission: Jennifer Suarez MD Consults: 12/21/24 16:49 Consult to Neurology / Tele-Neurology Routine Comment: Consulting Provider: [facility] 12/21/24 22:53 Consult to Neurology / Tele-Neurology Stat Comment: Consulting Provider: Woody Ordaz 12/21/24 22:55 Referral Physical Therapy Stat Comment: Physician Instructions: Referral Speech Therapy Stat Comment: Attending Provider on DC: Carmelita Dunne MD Discharging Provider: Carmelita Dunne MD DS: Diagnosis Problem List Completed Was Problem List Reviewed/Reconciled?: Yes Hospital Course Hospital Course Hospital course: Ms. Stringer is a 59-year-old female with past medical history of hyperlipidemia, arthritis, prediabetes who presented to [facility] ED on 12/21/24 due to headache and slurred speech. Patient noticed that her blood pressure was elevated systolic of more than 180 at home, family also noticed that the patient started developing some slurred speech, nausea and vomiting. Due to her symptoms stroke alert was called in the ED and teleneurology was consulted however at the time of their evaluation patient's presenting symptoms had already resolved.Patient will be admitted for stroke workup. CT of head, CTA of head and neck, MRI with MRA was negative for acute hemorrage or ischemic strok. MRI did show Multiple punctate foci increased signal in the white matter, demyelinating disease, electrocardiogram with Bubble study negative for any PFO or ASD. In house neurologist was also consulted, Patient was seen by Dr. Ordaz, Per neuro evaluation pt likely has TIA, Pt symptoms are completely resolved, Pt is hemodynamically stable to be discharged home. Per neuro recommendations, Pt is discharged home with Aspirin 81mg daily, atorvastatin 40mg daily and pt is advised to follow up with Dr. Ordaz in 3 weeks. Discharge Recommendations -Follow up with PCP within 1 week of discharge -You have been prescribed antibiotics for --- please complete the course -You have been prescribed aspirin and atorvastatin, please take them as directed -Please follow up with neurologist Dr. Ordaz within 3 weeks -Continue rest of medications as previously prescribed -Return to the ED or call EMS if symptoms return and/or worsen Hospitalization Diagnosis #Slurred Speech #Transient Ischemic attack (TIA) #CVA ruled out #Hyperlipidemia Assessment and plan discussed with my attending physician Dr. Daniela Dunne (PGY-1)- Internal medicine resident Time Spent with Patient Time attestation: Total time spent providing and/or coordinating discharge services: Time spent: Greater than 30 minutes Exam Vital Signs Temp Pulse Resp BP Pulse Ox O2 Del Method 97.7 F 62 18 117/75 94 L Room Air 12/22/24 16:00 12/22/24 16:00 12/22/24 16:00 12/22/24 16:00 12/22/24 16:00 12/22/24 16:00 Narrative Exam GENERAL: A&Ox3 . Awake, Not in acute distress NEURO: no focal neurological deficits noted HEENT: Atraumatic, Normocephalic. mucous membranes moist. Eyes open, symmetrical, & clear HEART: Normal Heart Sounds LUNGS: Clear to auscultation with no wheezing or crackles. ABDOMEN: soft, non-distended, non-tender, bowel sounds heard, no guarding or rebound tenderness SKIN: No Rash or ecchymoses EXTREMITIES: No edema, tenderness, able to move all 4 extremities, pedal pulses palpated Discharge Plan Plan Patient Disposition: HOME (Self Care) Care Plan Goals: -Follow up with PCP within 1 week of discharge -You have been prescribed antibiotics for --- please complete the course -You have been prescribed aspirin and atorvastatin, please take them as directed -Please follow up with neurologist Dr. Ordaz within 3 weeks -Continue rest of medications as previously prescribed -Return to the ED or call EMS if symptoms return and/or worsen Prescriptions/Referrals Prescriptions/Med Rec: New aspirin 81 mg tablet 81 mg PO QDAY Qty: 30 0RF atorvastatin 40 mg tablet 40 mg PO QDAY Qty: 30 0RF Held ibuprofen 800 MG tablet 800 mg PO Q8HR PRN (Reason: PAIN) Qty: 0 Hold Instructions: Resume on 12/29/24. Follow up outpatient with primary care to resume No Action lovastatin 20 mg Tablet 20 mg PO QDAY Referrals: No Primary/Family,Physician [Primary Care Provider] - Woody Ordaz MD [Physician] - Patient/Caregiver Discharge Instructions Education Materials: Discharge Instructions for Stroke Print Language: Grenadian Stand Alone Forms: [employer] Award Info., Patient Portal Info Letter, Work/Release Restrictions Discharge Order Discharge Orders: Discharge (Routine); Ordered 12/22/24 Ordered By: Carmelita Dunne Quality Discharge Quality Measures VTE prophylaxis
--- NOTE | 2024-12-22 22:56 | ECHO_ITS ---
Transthoracic Echo Report Ht (in): 67 Wt (lb): 180 Exam Location: Echo Lab Status: Inpatient Escort Service Attendant: Razia Sanchez Indications: Procedure Performed: BP: 139 / 85 HR: 72 Technical Quality: Adequate MEASUREMENTS (Male / Female) Normal Values 2D ECHO LV Diastolic Diameter PLAX 3.1 cm 4.2 - 5.9 / 3.9 - 5.3 cm LV Systolic Diameter PLAX 2.1 cm IVS Diastolic Thickness 0.6 cm 0.6 - 1.0 / 0.6 - 0.9 cm LVPW Diastolic Thickness 1.0 cm 0.6 - 1.0 / 0.6 - 0.9 cm LV Relative Wall Thickness 0.5 LVOT Diameter 2.0 cm LA Volume Index 30.5 cm?/m? 16 - 28 cm?/m? Ascending Aorta Diameter 2.7 cm DOPPLER AV Peak Velocity 114.0 cm/s AV Peak Gradient 5.2 mmHg LVOT Peak Velocity 81.5 cm/s LVOT Peak Gradient 2.7 mmHg AV Area Cont Eq pk 2.2 cm? MV Area PHT 2.4 cm? Mitral E Point Velocity 64.5 cm/s Mitral A Point Velocity 89.2 cm/s Mitral E to A Ratio 0.7 LV E' Lateral Velocity 8.3 cm/s Mitral E to LV E' Lateral Ratio 7.8 LV E' Septal Velocity 4.9 cm/s Mitral E to LV E' Septal Ratio 13.2 PV Peak Velocity 110.0 cm/s PV Peak Gradient 4.8 mmHg FINDINGS Left Ventricle Normal left ventricular size, wall thickness, systolic function with no obvious regional wall motion abnormalities. Normal left ventricular diastolic filling pattern for age. The ejection fraction is visually estimated at 65 %. Right Ventricle The right ventricle is normal in size and systolic function. The estimated right ventricular systolic pressure can not be determined Left Atrium The left atrium is normal by two-dimensional, color flow and Doppler imaging with no structural abnormalities, no thrombus formation present. Right Atrium The right atrium is normal by two-dimensional imaging, color flow and Doppler imaging with no structural abnormalities, no thrombus formation present. Atrial Septum The interatrial septum appears normal with no evidence of a shunt. Agitated saline bubble study negative for PFO/ASD. Aorta The aorta is normal by two-dimensional, color flow and Doppler interrogation. Mitral Valve The mitral valve is normal by two-dimensional, color flow and Doppler interrogation. There is no significant mitral valve regurgitation, stenosis or prolapse. Aortic Valve The aortic valve is trileaflet and normal by two-dimensional, color flow and Doppler interrogation. There is no significant aortic valve regurgitation. Tricuspid Valve The tricuspid valve is normal by two-dimensional, color flow and Doppler interrogation. There is no significant tricuspid valve regurgitation. Pulmonic Valve The pulmonic valve is not well visualized. There is no significant pulmonic valve regurgitation. Vessels The pulmonary artery appears normal. The inferior vena cava pulmonary and hepatic veins appear normal. Pericardium The pericardium is normal by two-dimensional imaging. There is no significant pericardial effusion. CONCLUSIONS Indications: Stroke Bubble study negative for any PFO or ASD. Consider SLOAN if high index of clinical suspicion. Normal LV size and function with an estimate of 60 to 65%. Diastolic dysfunction stage I. Normal RV size and function. Trace TR and TR jet inadequate to measure RVSP. No pericardial effusion. Honorio Isabel (Electronically Signed) Final Date: 22 December 2024 20:25
--- NOTE | 2024-12-22 23:42 | ESPR_ITS ---
Documentation for date of: 12/22/24 Exam - Neurology Vital Signs Temp Pulse Resp BP Pulse Ox O2 Del Method 97.7 F 62 18 117/75 94 L Room Air 12/22/24 16:00 12/22/24 16:00 12/22/24 16:00 12/22/24 16:00 12/22/24 16:00 12/22/24 16:00 Objective Labs 12/22/24 04:30 12/22/24 04:30 Labs: Laboratory Results - last 24 hr 12/22/24 04:30 WBC 6.3 RBC 4.93 Hgb 13.0 Hct 39.4 MCV 80 MCH 26.4 MCHC 33.0 RDW Std Deviation 38.1 Plt Count 220 Neut % (Auto) 49 Lymph % (Auto) 39 [place] % (Auto) 9 Eos % (Auto) 3 Baso % (Auto) 0 Neut # (Auto) 3.1 Lymph # (Auto) 2.5 [place] # (Auto) 0.5 Eos # (Auto) 0.2 Baso # (Auto) 0.0 Immature Gran # (Auto) 0.02 H Absolute Nucleated RBC 0.00 Immature Gran % 0 Nucleated RBC % 0 Sodium 143 Potassium 3.8 D Chloride 107 Carbon Dioxide 28.2 Anion Gap 8 BUN 11 Creatinine 0.7 Estim Creat Clear Calc 95.1 eGFR > 60 BUN/Creatinine Ratio [address] Glu mg/dL 120 Hemoglobin A1c 5.8 Calculated Osmolality 284 Calcium 8.8 Corrected Calcium 8.8 Phosphorus 4.2 Magnesium 2.0 Total Bilirubin 0.8 AST 31 ALT 27 Alkaline Phosphatase 79 Total Protein 6.3 Albumin 4.0 Globulin 2.3 Albumin/Globulin Ratio 1.7 Triglycerides 96 Cholesterol 155 LDL Cholesterol, Calc 72 HDL Cholesterol 64 H Cholesterol/HDL Ratio 2.4 L TSH 3.68
== END 2024-12-22 16:42 | disposition home or self-care (01) ==
LOC: SERX 21:13 → SERHOLD 12-22 07:36 → S2NX 12-22 13:46
PROVIDERS: Physician Assistant; Student in an Organized Health Care Education/Training Program; Admitting Provider Student in an Organized Health Care Education/Training Program; Emergency Provider Emergency Medicine; Visit Provider Internal Medicine
DX: G45.9 Transient cerebral ischemic attack, unspecified (principal); E78.5 Hyperlipidemia, unspecified; R73.03 Prediabetes; R03.0 Elevated blood-pressure reading, without diagnosis of hypertension; R11.2 Nausea with vomiting, unspecified; R19.7 Diarrhea, unspecified; I10 Essential (primary) hypertension; M19.90 Unspecified osteoarthritis, unspecified site; Z79.899 Other long term (current) drug therapy; Z90.49 Acquired absence of other specified parts of digestive tract; Z01.810 Encounter for preprocedural cardiovascular examination
CPT/HCPCS: 36415; 70450; 70496; 70498; 70544; 80053; 80061; 80307; 81001; 83036; 83735; 84100; 84443; 84484; 84702; 84703; 85025; 85610; 85730; 87086; 93005; 93306; 96360; 96361; 97161; 99285; A4649; G0378; J7030; Q9967; A9270

== ENCOUNTER → 2025-05-18 | Outpatient (CLI) | payer MEDICAID, SELFPAY ==
--- NOTE | 2025-05-18 11:00 | XR_ITS ---
Examination: Screening digital mammography, bilateral Computer aided detection 3-D breast Tomosynthesis, bilateral Date and time of exam: May 18, 2025, 10:44 a.m., compared to mammograms dating to September 11, 2020 Indication: Screening Technique: Nonmagnified MLO, CC views of the breasts to been obtained, reconstructed from 3-D Tomosynthesis images. R2 computer aided detection program utilized for evaluation of suspicious masses and/or abnormal calcifications. 3-D Tomosynthesis images obtained. Findings: Scattered areas of fibroglandular density. Benign calcifications. No interval suspicious masses Impression: BI-RADS category II: Benign Findings. Recommend 1 year follow-up mammogram.
== END | disposition home or self-care (01) ==
LOC: CDIM 10:35
PROVIDERS: Referring Provider Nurse Practitioner Family; Visit Provider Nurse Practitioner Family
DX: Z12.31 Encounter for screening mammogram for malignant neoplasm of breast (principal); R92.323 Mammographic fibroglandular density, bilateral breasts; R92.1 Mammographic calcification found on diagnostic imaging of breast
CPT/HCPCS: 77063; 77067